=== PATIENT | male | born 2005 | race Caucasian/White ===

== ENCOUNTER 2024-07-28 16:02 | Emergency (ER) | payer SELFPAY ==
[2024-07-28 16:03] VITALS: BP 125/72; PULSE 85; RESP 16; TEMP 36.3; O2SAT 97; BMI 29.1
--- NOTE | 2024-07-28 16:58 | EX.ED.GENINJ ---
HPI History of Present Illness Chief Complaint: Laceration Detail of Chief Complaint: Laceration to the end of his nose Informant: patient Onset/Context/Timing Onset: Hours Mechanism/Context: Blunt Injury Quality of Pain: Dull Location: Nose Current Severity: Gone Maximum Severity: Mild Worsened by: Palpation Relieved by: Leaving alone Associated Symptoms Associated Symptoms: Negative for Parasthesias, Weakness, Loss of function, Inability to ambulate, Loss of consciousness or Amnesia Narrative Narrative: Patient was removing a seat from a car. He slipped. He fell forward striking a piece of metal. He sustained a laceration tip of his nose with the terminal portion of his nose. Pain is worse with palpation. Last tetanus was approximately 4 to 5 years ago. He has no allergies to antibiotics. He denies loss of conscious. He is on no antithrombotic or anticoagulant. He denies dental trauma. Denies malalignment of his teeth. Tetanus Immunization: <5 years Prior similar symptoms: No Recent Illness/Hospitalization: No PFSH PFSH Medical History no medical history no medical history Home Medications ?Medication ?Instructions ?Recorded ?Last Taken ?Type cephalexin 500 mg capsule 500 mg PO Q6 #12 CAPSULES 07/28/24 Unknown Rx Allergy/AdvReac Type Severity Reaction Status Date / Time No Known Allergies Allergy Verified 07/28/24 16:06 Surgical History no surgical history no surgical history Social History Smoking Status: Never smoker [facility] ED Gastrointestinal Gastrointestinal: Denies nausea or vomiting Integumentary Reports other Details: Laceration distal portion of nose Neurologic Neurologic: Denies headache(s), paresthesias or weakness Hematologic/Lymphatic Hematologic/Lymphatic: Denies easy bleeding or easy bruising EXAM Physical Exam Const Vital Signs: 07/28/24 16:03 07/28/24 18:03 Temperature 97.3 F L Temperature Source Temporal Pulse Rate 85 74 Respiratory Rate 16 18 Blood Pressure 125/72 H 117/74 Blood Pressure Mean 89 88 Pulse Ox 97 97 Oxygen Delivery Method Room Air Room Air Positive well nourished and well developed General Appearance ED: well developed and NAD HEENT HEENT Narrative: Laceration tip of the nose approximately 1-1/2 cm. There is pain outpatient over the nose. There is no septal deviation hematoma. There is no evidence of epistaxis. trauma and tenderness Eyes PERRL and EOMs intact bilaterally General Eye ED: Yes other Other Details: There is no subconjunctival hemorrhage. Neck full ROM General: Negative for tenderness Resp normal respiratory effort Cardio regular rhythm Rate: regular rate Extremity normal to inspection Neuro oriented x3 and CN's II-XII intact bilaterally Cristy Coma Scale: document GCS findings Spontaneous Obeys Commands Oriented 15 Sensorium / Orientation: alert Psych mental status grossly normal and thought process normal Skin no rashes or lesions noted Wounds: wounds noted PROC Procedures Other Procedures Procedure(s): The laceration was prepped draped sterile manner. Anesthetized by local titration 1% lidocaine. Wound was irrigated with 100 cc of normal saline. Cleansed with surgical lens. All debris was removed. Simple interrupted sutures placed. A total of 6 stitches placed. Patient tolerated procedure. Cosmetically acceptable and hemostatic control after suturing. MDM MDM MDM Narrative Medical decision making narrative: Will obtain x-ray to evaluate for fracture. There is a fracture we will place on antibiotics otherwise antibiotics are not warranted. Will anesthetize area and suture. Procedure note to follow. Radiography Chest X-Ray - ED: 2 View, Read by ED Physician, Normal, Bony Structures and No Acute Disease Diagnostic Testing: Clinical Impression(s) from Imaging Studies Nasal Bones X-Ray 07/28/24 17:03 IMPRESSION: Normal x-ray examination of the nasal bones. Electronically Signed: Austin Flores MD at 17:41 EDT , Discharge Plan Triage Chief Complaint: Laceration ED Provider: Fabián De Jesus Dx/Rx/DC Orders Clinical Impression: Laceration of nose, Contusion of face Instructions: ED Laceration, All Closures, ED Laceration Minimize Scars Prescriptions: New cephalexin 500 mg capsule 500 mg PO Q6 Qty: 12 0RF Primary Care Provider: Care Physician,No Primary Referrals: Care Physician,No Primary [Primary Care Provider] - Doctor,Your [Non-Staff] - 5 Days for suture removal Print Language: [place] Disposition Disposition: Home, Self Care
--- NOTE | 2024-07-28 17:03 | RAD_ITS ---
STUDY: X-RAY - NASAL BONES REASON FOR EXAM: Male, 19 years old. Blunt trauma with pain to palpation TECHNIQUE: 3 view(s) of the nasal bones. COMPARISON: None. FINDINGS: Normal nasal bones. Normal anterior nasal spine. There is no demonstrated soft tissue swelling. The remaining visualized osseous structures are normal. Normal visualized paranasal sinuses. RAD/Nasal Bones min 3 Views IMPRESSION: Normal x-ray examination of the nasal bones. Electronically Signed: Austin Flores MD at 17:41 EDT ,
[2024-07-28 18:03] VITALS: BP 117/74; PULSE 74; RESP 18; O2SAT 97
[2024-07-28] MEDS: Lidocaine 1% (20 ml mdv) 20 ML Vial INFILT (18:36)
== END 2024-07-28 19:22 | disposition home or self-care (01) ==
PROVIDERS: Emergency Provider Emergency Medicine; Visit Provider Emergency Medicine
DX: S01.21XA Laceration without foreign body of nose, initial encounter (principal); W01.198A Fall on same level from slipping, tripping and stumbling with subsequent striking against other object, initial encounter; Y93.89 Activity, other specified
CPT/HCPCS: 12011; 70160; 99283